=== PATIENT | female | born 1975 | race Caucasian/White ===

== ENCOUNTER 2016-07-02 12:52 | Outpatient (RCR) | payer OTHER ==
--- OUTSIDE RECORDS SUMMARY | 2016-06-18 12:56 | XMS REPORT | Continuity of Care Document ---
Author Author [facility] Organization [facility] Address Unknown Phone Unavailable Care Team Providers Care Die Sinker Name Role Phone FrankieRobbie sosa PCP [phone] Source Comments Some departments are not documenting in the electronic medical record. If you do not see the information that you expected, contact Release of Information in the Health Information Management department at [phone] for further assistance in locating additional records.[facility] Active Allergies and Adverse Reactions Allergen Noted Date Severity Reactions Comments Cimzia 09/15/2012 ANAPHYLAXIS, RASH Entocort Ec 12/09/2015 Low DIZZINESS light headed, hypertension, tacchycardia Flagyl 07/07/2012 SEE COMMENTS pancreatitis, tachycardia Humira 09/15/2012 SEE COMMENTS Neuro side effects Mercaptopurine 09/15/2012 RASH, SEE COMMENTS Neuro side effects Liver enzymes elevated Remicade 07/13/2012 ANAPHYLAXIS Current Medications Prescription Sig. Disp. Refills Start End Date Status Date colesevelam(+) (WELCHOL) Take 1,250 mg by mouth Active 625 mg tablet every morning. May take more as needed. estradiol (ESTRACE) 2 mg Take 2 mg by mouth every Active tablet morning. DULoxetine DR (CYMBALTA) Take 60 mg by mouth at Active 60 mg capsule bedtime daily. ALPRAZolam (XANAX) 1 mg Take 1 mg by mouth twice Active tablet daily as needed. ondansetron (ZOFRAN) 8 mg Take 8 mg by mouth every Active tablet 8 hours as needed. cyanocobalamin (VITAMIN Inject 1 mL to area(s) as 1 mL 3 11/13/19 Active B-12, RUBRAMIN) 1,000 directed every 30 days. 16 mcg/mL injection acetaminophen (TYLENOL) Take 2 Tabs by mouth 80 Tab 0 05/17/20 Active 325 mg tablet every 6 hours as needed 16 for Pain. oxyCODONE (ROXICODONE, Take 1-2 Tabs by mouth 60 Tab 0 05/17/20 Active OXY-IR) 5 mg tablet every 4 hours as needed 16 for Pain Earliest Fill Date: 05/17/16 polyethylene glycol 3350 Take 17 g by mouth daily. 527 g 3 05/17/20 Active (GLYCOLAX; MIRALAX) 17 16 gram/dose powder Active Problems Problem Noted Date Crohn disease (HCC) 05/13/2016 Crohn's disease (HCC) 09/15/2012 S/P cholecystectomy 09/15/2012 Vitamin D deficiency 09/15/2012 Vitamin B12 deficiency 09/15/2012 Most Recent Encounters Date Type Specialty Providers Description 06/05/2016 Office Visit Oncology Silvestre Hernadez DO Crohn's disease with complication, unspecified gastrointestinal tract location (HCC) (Primary Dx) 06/05/2016 Office Visit Gastroenterology Lisa Lacy MD Crohn's disease of small and large intestines with complication (HCC) (Primary Dx); Unintentional weight loss; Functional diarrhea; Chronic fatigue 05/13/2016 [facility] Silvestre Hernadez DO Crohn disease (HCC) - Encounter 05/17/2016 05/13/2016 Anesthesia General Surgery Silvestre Rowland DO Event 05/13/2016 Surgery General Surgery Silvestre Hernadez DO LAPAROSCOPIC ILEOCOLECTOMY 05/04/2016 PAC Office Anesthesiology Silvestre Hernadez DO Preop testing (Primary Visit Dx); Crohn's disease with complication, unspecified gastrointestinal tract location (HCC) 05/04/2016 Anesthesia General Surgery Jose Maria Beavers DO Event 04/10/2016 Office Visit Oncology Silvestre Hernadez DO Crohn's disease with complication, unspecified gastrointestinal tract location (HCC) (Primary Dx) 04/10/2016 Telephone Gastroenterology Lisa Lacy MD Appointment Request 04/10/2016 Prep for Case Oncology Silvestre Hernadez DO Social History Tobacco Use Types Packs/Day Years Used Date Current Every Day Smoker Cigarettes 0.5 15 Smokeless Tobacco: Never Used Alcohol Use Drinks/Week oz/Week Comments Yes ~1 time per month Last Filed Vital Signs Vital Sign Reading Time Taken Blood Pressure 114/83 06/05/2016 11:25 AM CDT Pulse 88 06/05/2016 11:25 AM CDT Temperature 37 C (98.6 F) 06/05/2016 11:25 AM CDT Respiratory Rate 16 04/10/2016 1:27 PM CDT Height 1.575 m (5' 2.01") 06/05/2016 11:25 AM CDT Weight 58.06 kg (128 lb) 06/05/2016 11:25 AM CDT Body Mass Index 23.41 06/05/2016 11:25 AM CDT Oxygen Saturation 98% 05/17/2016 10:19 AM CDT Plan of Care Date Type Specialty Providers Description 06/26/2016 Appointment Oncology Silvestre Hernadez DO [address] [place] [address] [phone] (Fax) Health Maintenance Due Date Last Done Comments Physical (Comprehensive) 1984 Exam Pertussis Vaccine 1988 Tetanus Vaccine 1994 Cervical Cancer Screening 1998 Influenza Vaccine 04/23/2016 Procedures from Last 3 Months Procedure Name Priority Date/Time Associated Diagnosis Comments PROCEDURES-SCAN 05/15/2016 Results for this 1:00 PM CDT procedure are in the results section. LAPAROSCOPIC 05/13/2016 Crohn's colitis (HCC) ILEOCOLECTOMY 7:45 AM CDT Results from Last 3 Months BASIC METABOLIC PANEL (05/17/2016 6:05 AM)Only the most recent of 5 results within the time period is included. Component Value Range Sodium 138 137-147 MMOL/L Potassium 3.7 3.5-5.1 MMOL/L Chloride 103 98-110 MMOL/L CO2 29 21-30 MMOL/L Anion Gap 6 3-12 Glucose 91 70-100 MG/DL Blood Urea Nitrogen 5 (L) 7-25 MG/DL Creatinine 0.52 0.4-1.00 MG/DL Calcium 8.9 8.5-10.6 MG/DL eGFR Non >60Comment: >60 mL/min The eGFR is not validated for use in drug dosing adjustments. Continue to use estimated creatinine clearance per dosing reference text. Please contact the Clinical Pharmacist for questions. eGFR >60Comment: >60 mL/min The eGFR is not validated for use in drug dosing adjustments. Continue to use estimated creatinine clearance per dosing reference text. Please contact the Clinical Pharmacist for questions. Specimen Blood PHOSPHORUS (05/17/2016 6:05 AM)Only the most recent of 4 results within the time period is included. Component Value Range Phosphorus 3.2 2.0-4.0 MG/DL Specimen Blood MAGNESIUM (05/17/2016 6:05 AM)Only the most recent of 4 results within the time period is included. Component Value Range Magnesium 1.7 1.6-2.6 MG/DL Specimen Blood CBC (05/16/2016 4:14 AM)Only the most recent of 4 results within the time period is included. Component Value Range White Blood Cells 15.4 (H) 4.5-11.0 K/UL RBC 3.89 (L) 4.0-5.0 M/UL Hemoglobin 11.1 (L) 12.0-15.0 GM/DL Hematocrit 33.8 (L) 36-45 % MCV 86.8 80-100 FL MCH 28.6 26-34 PG MCHC 33.0 32.0-36.0 G/DL RDW 12.9 11-15 % Platelet Count 275 150-400 K/UL MPV 9.5 7-11 FL Specimen Blood PROCEDURES-SCAN (05/15/2016 1:00 PM) Narrative Ordered by an unspecified provider. ANESTHESIA PERIPHERAL NERVE BLOCK (05/13/2016 10:41 AM) Narrative Silvestre Rowland DO 05/13/2016 10:41 AM Anesthesia Procedure: Peripheral Nerve Block PERIPHERAL NERVE BLOCK Date/Time: 05/13/2016 10:26 AM Patient location: post-op Reason for block: at surgeon's request and post-op pain management Staff Anesthesiologist: KIRK SHAH Performed by: PRIYANK ARGUELLES Preprocedure checklist performed: 2 patient identifiers, risks & benefits discussed, patient evaluated, timeout performed, consent obtained, patient being monitored and sterile drape Sterile technique: - Proper hand washing - Cap, mask - Sterile gloves - Skin prep for antisepsis Peripheral Nerve Block Procedure Patient position: supine Prep: ChloraPrep Monitoring: EKG and continuous pulse ox Block type: TAPs Laterality: left Injection technique: single-shot Procedures: ultrasound guidedLocal infiltration: lidocaine Needle/cathether: Needle type: Tuohy Needle gauge: 18 G; Needle length: 3.5 in Needle location: ultrasound guidance Procedure Outcome Injection assessment: negative aspiration for heme, no paresthesia on injection, incremental injection and local visualized surrounding nerve on ultrasound Observations: patient tolerated the procedure well with no immediate complications Refer to nursing documentation for vitals and monitoring data during procedure. Anesthesia Procedure: Peripheral Nerve Block PERIPHERAL NERVE BLOCK Date/Time: 05/13/2016 10:30 AM Patient location: post-op Reason for block: at surgeon's request and post-op pain management Staff Anesthesiologist: KIRK SHAH Performed by: SILVESTRE ROWLAND Preprocedure checklist performed: 2 patient identifiers, risks & benefits discussed, patient evaluated, timeout performed, consent obtained, patient being monitored and sterile drape Sterile technique: - Proper hand washing - Cap, mask - Sterile gloves - Skin prep for antisepsis Peripheral Nerve Block Procedure Patient position: supine Prep: ChloraPrep Monitoring: BP, EKG and continuous pulse ox Block type: TAPs Laterality: right Injection technique: single-shot Procedures: ultrasound guidedLocal infiltration: lidocaine Needle/cathether: Needle type: Tuohy Needle gauge: 18 G; Needle length: 4 in Needle location: ultrasound guidance Procedure Outcome Injection assessment: negative aspiration for heme, no paresthesia on injection, incremental injection and local visualized surrounding nerve on ultrasound Additional notes: Staff Anesthesiologist at bedside throughout the procedure Silvestre Rowland D.O. CA-3 [id number] Refer to nursing documentation for vitals and monitoring data during procedure. ANESTHESIA PERIPHERAL NERVE BLOCK (05/13/2016 10:41 AM) Constantin Rowland DO 05/13/2016 10:41 AM Anesthesia Procedure: Peripheral Nerve Block PERIPHERAL NERVE BLOCK Date/Time: 05/13/2016 10:26 AM Patient location: post-op Reason for block: at surgeon's request and post-op pain management Staff Anesthesiologist: KIRK SHAH Performed by: PRIYANK ARGUELLES Preprocedure checklist performed: 2 patient identifiers, risks & benefits discussed, patient evaluated, timeout performed, consent obtained, patient being monitored and sterile drape Sterile technique: - Proper hand washing - Cap, mask - Sterile gloves - Skin prep for antisepsis Peripheral Nerve Block Procedure Patient position: supine Prep: ChloraPrep Monitoring: EKG and continuous pulse ox Block type: TAPs Laterality: left Injection technique: single-shot Procedures: ultrasound guidedLocal infiltration: lidocaine Needle/cathether: Needle type: Tuohy Needle gauge: 18 G; Needle length: 3.5 in Needle location: ultrasound guidance Procedure Outcome Injection assessment: negative aspiration for heme, no paresthesia on injection, incremental injection and local visualized surrounding nerve on ultrasound Observations: patient tolerated the procedure well with no immediate complications Refer to nursing documentation for vitals and monitoring data during procedure. Anesthesia Procedure: Peripheral Nerve Block PERIPHERAL NERVE BLOCK Date/Time: 05/13/2016 10:30 AM Patient location: post-op Reason for block: at surgeon's request and post-op pain management Staff Anesthesiologist: KIRK SHAH Performed by: SILVESTRE ROWLAND Preprocedure checklist performed: 2 patient identifiers, risks & benefits discussed, patient evaluated, timeout performed, consent obtained, patient being monitored and sterile drape Sterile technique: - Proper hand washing - Cap, mask - Sterile gloves - Skin prep for antisepsis Peripheral Nerve Block Procedure Patient position: supine Prep: ChloraPrep Monitoring: BP, EKG and continuous pulse ox Block type: TAPs Laterality: right Injection technique: single-shot Procedures: ultrasound guidedLocal infiltration: lidocaine Needle/cathether: Needle type: Tuohy Needle gauge: 18 G; Needle length: 4 in Needle location: ultrasound guidance Procedure Outcome Injection assessment: negative aspiration for heme, no paresthesia on injection, incremental injection and local visualized surrounding nerve on ultrasound Additional notes: Staff Anesthesiologist at bedside throughout the procedure Silvestre Rowland D.O. CA-3 [id number] Refer to nursing documentation for vitals and monitoring data during procedure. SURGICAL PATHOLOGY (05/13/2016 9:13 AM) Component Value Range PATHOLOGY REPORT [facility] [email or web address] Eliot Ray MD, PhD, Director of Anatomic Pathology Department of Pathology and Laboratory Medicine [address] [place] [id number] Surgical Pathology Office: [phone] SURGICAL PATHOLOGY REPORT NAME: ALISHA GARCIA SURG PATH #: [id number] MR #: [id number] SPECIMEN CLASS: SR BILLING #: [id number] ALT ID #: LOCATION: [id number] DATE OF PROCEDURE: 05/13/2016 AGE: 40 SEX: F DATE RECEIVED: 05/13/2016 : 1975 TIME RECEIVED: 09:13 PHYSICIAN: SILVESTRE HERNADEZ DATE OF REPORT: 05/15/2016 COPY TO: DATE OF PRINTIN05/15/2016 ################################################## ###################### Final Diagnosis: A. Right colon and ileum, "ileocolectomy", laparoscopic ileocolectomy: Stenotic segment showing involvement by Crohn's disease with marked chronic ileitis associated with focal fissural ulceration, pseudo-pyloric metaplasia, chronic inflammation and fibrosis. The margins are uninvolved by inflammation. Negative for dysplasia. Attestation: By this signature, I attest that I have personally formulated the final interpretation expressed in this report and that the above diagnosis is based upon my examination of the slides and/or other material indicated in this report. +++Electronically Signed Out By+++ ksw/05/13/2016 Interpreted by: Luke Leon MBBS Fellow 05/15/2016 ################################################## ###################### Material Received: A: ileocolectomy for permanent History: 40-year-old female with a history of Crohn's colitis. Gross Description: A. Received fresh labeled with the patient's name and "ileocolectomy" is a 19.5 cm in length by 3.4 cm in diameter portion of intestine. The specimen has two unoriented stapled margins. The specimen is distorted status post previous ileocecostomy. The serosal surface is pink-guadarrama, smooth and glistening with attached yellow-guadarrama, lobulated adipose tissue. On one end of the intestine is a 7.3 cm yellow-guadarrama, creeping fat appearance of adipose tissue. Opening the portion of intestine longitudinally reveals an 8.2 x 3.3 cm irregular, red-brown area with a loss of mucosal folds and a thickened intestinal wall measuring 0.7 cm. This area correlates with the irregular adipose tissue. The area is 0.2 cm from the closest margin and 11.1 cm from the opposing margin. The grossly uninvolved mucosa is guadarrama-brown and erythematous with mucosal folds and a wall thickness of 0.4 cm. No polyps, perforations or masses are grossly identified. [employer] sections are submitted to [facility]. [employer] sections are submitted as follows: A1 Margin closest to irregular area. A2 Opposing margin. A3-A5 [employer] sections of irregular area. A6-A7 Grossly uninvolved mucosa. (sld) /05/13/2016 Solo Grady M.D. Resident TYPE & CROSSMATCH (05/13/2016 6:46 AM) Component Value Range Units Ordered 0 Crossmatch Expires 05/16/2016 Record Check FOUND ABO/RH(D) O NEG Antibody Screen NEG Electronic Crossmatch YES Specimen Blood TYPE & SCREEN (NOT CROSSMATCH ELIGIBLE) (05/04/2016 12:00 PM) Component Value Range ABO/RH(D) O NEG Antibody Screen NEG Blood Component Type RED CELL GROUP Specimen Blood, venous - Blood
[2016-06-18] MEDS: CATHETER FLUSH 10 ML SYR IV PRN ×3 (13:20→14:32)
[2016-06-18] MEDS: ACETAMINOPHEN 500 MG TAB (TYLENOL) PO SCH (13:22)
[2016-06-18] MEDS: diphenhydrAMINE 50 MG/ML INJ (BENADRYL) IV SCH (13:23)
[2016-06-18] MEDS: methylPREDNISolone 40 MG/ML (Solu-MEDROL) VIAL IV SCH (13:40)
[2016-06-18 13:55] VITALS: BP 119/90
[2016-06-18 14:36] VITALS: BP 119/90
[~2016-07-02] VITALS: Ht 157.5 cm; Wt 64.2 kg
[~2016-07-02 12:52] MED LIST: ACET-575 PO; ACETAMINOPHEN 500 MG TAB (TYLENOL) ONE; ACHD5005 PO; ALPR1T PO; ALPR1TAB7 PO; COLE625T9 PO; CPR500T PO; D50KC PO; DICY10CA26; DULO30CA; DULO60CA58 PO; DULO60CA6 PO; EST.1TD TD; ESTR1TAB24 PO; ESTR2TAB PO; ESTR2TAB4 PO; FNT50TD; HYDR-3812 PO; HYDR453.3 TOP; LORA0.5T34; MSL250CCR; MSL250CCR PO; ONDA8TAB13 PO; ONDA8TAB9 PO; ONDN4T PO; OTC ANTIDIARRHEAL; OXYC-12 PO; OXYC-272 PO; POTA10CA43 PO; PRD10T; PRD10T PO; PRD5T; PRED10TA PO; RABE20TA PO; SCR1T1 PO; VEDOLIZUMAB 300 MG/NS 250 ML IVPB IV NR; VEDOLIZUMAB 300 MG/NS 250 ML IVPB IV SCH; WELCHOL 625MG; WELCHOL PO; diphenhydrAMINE 50 MG/ML INJ (BENADRYL) ONE
[2016-07-02] MEDS: ACETAMINOPHEN 500 MG TAB (TYLENOL) PO SCH (13:10)
[2016-07-02] MEDS: diphenhydrAMINE 50 MG/ML INJ (BENADRYL) IV SCH (13:10)
[2016-07-02] MEDS: methylPREDNISolone 40 MG/ML (Solu-MEDROL) VIAL IV SCH (13:15)
[2016-07-02] MEDS ORDERED: diphenhydrAMINE 50 MG/ML INJ (BENADRYL) IVP ONE (14:20)
[2016-07-02] MEDS ORDERED: NS IV 1000 ML 1,000 ML ONE (14:21)
[2016-07-02 15:12] VITALS: BP 132/82
[2016-07-30] MEDS ORDERED: VEDOLIZUMAB 300 MG/NS 250 ML IVPB IV SCH ×2 (06:00)
[2016-09-24] MEDS ORDERED: VEDOLIZUMAB 300 MG/NS 250 ML IVPB IV SCH ×2 (13:30)
== END 2016-09-16 | disposition home or self-care (01) ==
LOC: SDC 12:52
PROVIDERS: ATTEND Internal Medicine
DX: K50.119 Crohn's disease of large intestine with unspecified complications (principal); K50.019 Crohn's disease of small intestine with unspecified complications
CPT/HCPCS: 96365; 96374; 96375

== ENCOUNTER → 2018-11-29 | Outpatient (CLI) | payer OTHER ==
[~2018-11-29] MED LIST changes: -ACETAMINOPHEN 500 MG TAB (TYLENOL) ONE; -HYDR-3812 PO; -VEDOLIZUMAB 300 MG/NS 250 ML IVPB IV NR; -VEDOLIZUMAB 300 MG/NS 250 ML IVPB IV SCH; -diphenhydrAMINE 50 MG/ML INJ (BENADRYL) ONE
--- NOTE | 2018-11-29 10:09 | Diagnostic Imaging Report ---
INDICATION: Screening for osteoporosis. COMPARISON: No prior examinations are available for comparison. TECHNIQUE: The bone mineral density of the hips and spine was measured. FINDINGS: The T score for the spine is -1.3. The T score for the left hip is -1.9 and for the right hip is -2.1. Furthermore, the T score for the left femoral neck is -2.1 and for the right femoral neck is -2.3. All of these values indicate osteopenia. MEASUREMENTS: AP Spine L1-L4: [BMD (g/cm2): 1.038] [T-Score: -1.3] [Z-Score: -1.2] [BMD Previous: N/A] [BMD % Change: N/A] LT Hip Neck: [BMD (g/cm2): 0.740] [T-Score: -2.1] [Z-Score: -1.6] LT Hip Total: [BMD (g/cm2):0.766] [T-Score:-1.9] [Z-Score: -1.6] [BMD Previous: N/A] [BMD % Change: N/A] RT Hip Neck: [BMD (g/cm2):0.712] [T-Score:-2.3] [Z-Score:-1.8] RT Hip Total: [BMD (g/cm2):0.741] [T-score:-2.1] [Z-Score:-1.8] [BMD Previous:N/A] [BMD % Change:N/A] *Indicates significant change from prior examination based on 95% confidence level. World Health Organization criteria for BMD interpretation classify patients as Normal (T-score at or above -1.0), Osteopenic (T-score between -1.0 and -2.5) or Osteoporotic (T-score at or below -2.5). LIMITATIONS AND MODIFICATION: None. FRACTURE RISK (FRAX SCORE): The ten year probability of (%): Major Osteoporotic Fracture: [4.0] Hip Fracture: [1.5] IMPRESSION: 1. There is osteopenia of the spine and hips. 2. See below National Osteoporosis Foundation guidelines on when to potentially initiate pharmacologic therapy. Based on the National Osteoporosis Foundation Guidelines, pharmacologic treatment should be initiated in any of the following, unless clinical conditions suggest otherwise: * Any patient with prior fragility fracture of the hip or vertebrae. A spine fracture indicates 5X risk for subsequent spine fracture and 2X risk for subsequent hip fracture. * Osteoporosis (T-score <-2.5). * Postmenopausal women and men age 50 and older with low bone mass/osteopenia (T-score between -1.0 and -2.5) by DXA and 10-year major osteoporotic fracture greater than 20% or a 10-year probability of hip fracture greater than 3%. These fracture risks are supplied above in the FRAX score, if applicable. * Clinician judgement and/or patient preferences may indicate treatment for people with 10-year fracture probabilities above or below these levels. Dictated by: Dictated on workstation # [id number]
== END ==
LOC: RAD 08:38
PROVIDERS: ATTEND Internal Medicine
DX: Z13.820 Encounter for screening for osteoporosis (principal); M85.89 Other specified disorders of bone density and structure, multiple sites; M81.8 Other osteoporosis without current pathological fracture
CPT/HCPCS: 77080